=== PATIENT | male | born 1965 | race Caucasian/White ===

== ENCOUNTER 2019-07-10 05:25 | Day surgery (SDC) | payer BC ==
[2019-07-09 12:05] VITALS: BMI 26.4
[2019-07-10] MEDS ORDERED: oxyCODONE HCL 5 MG TABLET PO PRN ×2 (09:06)
[2019-07-10] MEDS ORDERED: ONDANSETRON 4 MG/2 ML VIAL IVPUSH PRN (09:06)
[2019-07-10] MEDS ORDERED: MIDAZOLAM HCL 2 MG/2 ML SINGLE DOSE VIAL ONE (09:12)
[2019-07-10] MEDS ORDERED: PROPOFOL 20 ML ONE (09:12)
[2019-07-10] MEDS ORDERED: KETOROLAC TROMETHAMINE 30 MG/1 ML VIAL ONE (09:15)
[2019-07-10] MEDS ORDERED: DEXAMETHASONE SOD PHOSPHATE 4 MG/1 ML VIAL ONE (09:15)
[2019-07-10] MEDS ORDERED: LIDOCAINE HCL/PF 2% SDV 5ML VIAL ONE (09:15)
[2019-07-10] MEDS ORDERED: LACTATED RINGERS SOLUTION 1,000 ML IV SCH (09:15)
[2019-07-10] MEDS ORDERED: LIDOCAINE 1%-EPI 1:100,000 30 ML MDV IJ ONE (09:37)
[2019-07-10] MEDS ORDERED: BACITRACIN 15 GM TUBE TOPICAL OINTMENT ONE (09:37)
--- NOTE | 2019-07-10 09:43 | HP ---
[facility]ellite [facility] - Chief Complaint Chief Complaint: L KNEE PAIN - Past Medical History Allergies/Adverse Reactions: Allergies Allergy/AdvReac Type Severity Reaction Status Date / Time No Known Allergies Allergy Verified 07/10/19 07:53 Renal/: Yes: BPH - Current Medications Current Medications: Home Medications Medication Instructions Recorded NK [No Known Home Medication] 07/09/19 Satellite Physical Exam - Physical Examination Vital Signs: Vital Signs Period Temp Pulse Resp BP Sys/Frias Pulse Ox Last 24 Hr 99.0 F-99.0 F 58-58 20-20 115-115/70-70 97 Extremities: Other (L KNEE JOINT LINE TENDERNESS) Satellite Impression/Plan - Impression/Plan Impression: L KNEE INTERNAL DERANGEMENT Operative Procedure: L KNEE ARTHROSCOPY Date to be Performed: 07/10/19
[2019-07-10] MEDS ORDERED: ceFAZolin SODIUM 1 GM VIAL IVPB ONE (10:01)
[2019-07-10] MEDS ORDERED: ceFAZolin SODIUM 1 GM VIAL ONE (10:01)
[2019-07-10] MEDS ORDERED: LIDOCAINE HCL 1%, 10 MG/ML (50 mL VIAL) IJ ONE (10:11)
[2019-07-10] MEDS ORDERED: BUPIVACAINE HCL/PF 0.5% (5 MG/ML) 30 ML VIAL IJ ONE (10:11)
--- NOTE | 2019-07-10 11:34 | SPEC ---
DATE OF OPERATION: 07/10/2019 PREOPERATIVE DIAGNOSIS: Internal derangement, left knee. POSTOPERATIVE DIAGNOSIS: Internal derangement, left knee. PROCEDURE: Left knee arthroscopy, partial medial meniscectomy. SURGICAL ATTENDING: Chung Izaguirre MD RELAY ASSEMBLER: No operational assistant. ANESTHESIA: LMA. CLOSURE: Nylon 4-0. COMPLICATIONS: None. CONDITION: To recovery room in stable condition. DESCRIPTION OF OPERATIVE PROCEDURE: Patient was taken to the operating room on July 10, 2019. General anesthesia with LMA was administered by the anesthesiologist. The left lower extremity was prepped and draped in the usual sterile fashion. The medial and lateral infrapatellar portal sites were infiltrated with 1% Xylocaine with epinephrine. Both portals were then made with a 15 blade followed by a blunt trocar. The scope was placed in the lateral infrapatellar portal and up into the suprapatellar pouch. The knee was inflated with a cocktail of 10 mL of 1% Xylocaine, 10 mL of 0.5% Marcaine, and 20 mL of arthroscopic saline. This was allowed to sit in the knee for a few minutes to allow the anesthetic to work intraarticularly. The scope was placed in the lateral infrapatellar portal and up into the suprapatellar pouch. The pouch was visualized to be clean. The medial and lateral gutters were visualized to be clean. The undersurface of the patella and trochlea were visualized to be intact. With valgus stress on the knee, the medial compartment was entered. The medial meniscus was visualized, probed, and found to have a complex tear of the posterior horn. This was debrided back to smooth stable meniscal tissue using a meniscal biter and arthroscopic shaver. The medial femoral condyle was run and found to be intact as well as the medial tibial plateau. At 90 degrees, the ACL was visualized, probed, and found to be intact. In the figure 4 position, the lateral compartment was entered. The lateral meniscus was visualized, probed, and found to be intact. The lateral femoral condyle was run and found to be intact as was the lateral tibial plateau. The knee was irrigated with copious amounts of irrigation and then the fluid was drained. The inferomedial portal was closed then with 4-0 nylon. Prior to pulling the trocar from the lateral infrapatellar portal, 20 mL of 0.5% Marcaine was infused into the knee for postoperative analgesia. The trocar was then pulled and the incision was closed with 4-0 nylon suture. A sterile pressure dressing was applied. Patient awakened from anesthesia and transferred to recovery in stable condition. No complication. Estimated blood loss negligible. Jeanine ALBERT/[id number]
--- NOTE | 2019-07-10 11:39 | OP ---
Operative Note - Note: Operative Date: 07/10/19 ([facility]) Pre-Operative Diagnosis: left knee internal derangement Operation: left knee arthroscopy with PMM Post-Operative Diagnosis: Same as Pre-op Surgeon: Chung Izaguirre Anesthesiologist/EQUAL OPPORTUNITY OFFICER: Lakhwinder Mancia Anesthesia: General, Local Specimens Removed: shavings Estimated Blood Loss (mls): 5 Operative Report Dictated: Yes
[2019-07-10 11:48] VITALS: TEMP 98
[2019-07-10 13:22] VITALS: BP 115/65; PULSE 67
--- NOTE | 2019-07-11 15:40 | PATH ---
Surgical Pathology Report Patient Name: NOELLE ARIZA Med. Rec. #: [id number] /Age/Gender: 1965 (Age: 53) / M Account: [id number] Location: [facility] SURGICAL Taken: 07/10/2019 Received: 07/10/2019 Reported: 07/11/2019 Physicians: Chung Izaguirre M.D. Specimen(s) Received KNEE SHAVINGS, LEFT Clinical History Left knee pain Final Diagnosis KNEE SHAVINGS, LEFT, ARTHROSCOPY, MEDIAL MENISCECTOMY: FRAGMENTS OF CARTILAGE, DENSE FIBROCONNECTIVE TISSUE, ADIPOSE TISSUE, AND SYNOVIUM. Electronically Signed Asha Childs M.D. Gross Description Received in formalin, labeled "left knee shavings," is a 3 x 2 x 1.5 cm. aggregate of sage-yellow soft tissue fragments. A fundraising sale representative portion is submitted in one cassette. MLSZ/07/10/2019 sandarius/07/10/2019
== END 2019-07-10 13:21 | disposition home or self-care (01) ==
LOC: JASU-SURG 05:25
PROVIDERS: ATTEND Orthopaedic Surgery
PROC: 0SBD4ZZ Excision of Left Knee Joint, Percutaneous Endoscopic Approach (ICD-10-PCS; principal; 2019-07-10 09:00)
DX: M23.322 Other meniscus derangements, posterior horn of medial meniscus, left knee (principal)
CPT/HCPCS: 88304-TC; 94760